=== PATIENT | female | born 1970 | race African-American/Black ===

== ENCOUNTER 2017-02-03 07:24 | Emergency (ER) | payer MEDICAID, OTHER ==
[~2017-02-03] VITALS: Ht 170.2 cm; Wt 70.0 kg
[2017-02-03 07:31] VITALS: BP 119/68; PULSE 72; RESP 20; TEMP 98.5; O2SAT 96
[2017-02-03] MEDS ORDERED: ZANT150T2 PO (07:37)
[2017-02-03] MEDS ORDERED: KETOROLAC TROMETHAMINE 60 MG/2 ML (IM) VIAL IM ONE (07:45)
[2017-02-03] MEDS ORDERED: ORPHENADRINE INJ 60 MG/2 ML AMP IM ONE (07:45)
[2017-02-03] MEDS ORDERED: CYCL1TAB29 PO (07:46)
[2017-02-03] MEDS ORDERED: IBUP800T23 PO (07:46)
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
== END 2017-02-03 08:05 | disposition home or self-care (01) ==
LOC: NEPK 07:24
DX: S46.811A Strain of other muscles, fascia and tendons at shoulder and upper arm level, right arm, initial encounter (principal); S39.012A Strain of muscle, fascia and tendon of lower back, initial encounter; K21.9 Gastro-esophageal reflux disease without esophagitis; F17.200 Nicotine dependence, unspecified, uncomplicated; V49.50XA Passenger injured in collision with unspecified motor vehicles in traffic accident, initial encounter
CPT/HCPCS: 96372; 99284; J1885; J2360

== ENCOUNTER 2017-07-31 06:00 | Emergency (ER) | payer MEDICAID, OTHER ==
[~2017-07-31] VITALS: Ht 165.1 cm; Wt 75.0 kg
[~2017-07-31 06:00] MED LIST: CYCL10TA PO; IBUP1TAB7 PO; ZANT150T2 PO
[2017-07-31 06:04] VITALS: BP 107/68; PULSE 89; RESP 16; TEMP 98.5; O2SAT 96
[2017-07-31] MEDS ORDERED: AMOX875T PO (06:24)
[2017-07-31] MEDS ORDERED: FLUT1SPR5 EACH NARE (06:24)
--- NOTE | 2017-07-31 06:28 | PD ---
HPI Chief Complaint: ENT Complaint Time Seen by Provider: 06:21 Travel History International Travel<30 days: No Contact w/Intl Traveler<30days: No Traveled to known affect area: No History of Present Illness HPI 41-year-old female presents for evaluation. For the past 2 days she has had nasal congestion, facial/sinus pressure. Symptoms are moderate, constant, no alleviating factors. Denies cough, sore throat, fevers or chills. No other complaints. PFSH Past Medical History Cardiac Catheterization: No Cardiovascular Problems: No High Cholesterol: No Congestive Heart Failure: No Diabetes: No Diminished Hearing: No GERD: Yes Heparin Induced Thrombocytopen: No Hypertension: No Immunizations Current: No Tetanus Vaccination: Unknown ?: Not LMP: menapause : 5 Para: 3 Tubal Ligation: Yes Past Surgical History Coronary Artery Bypass Graft: No Gynecologic Surgery: Yes (TUBAL LIGATION ) Family History Family Myocardial Infarction: Yes Social History Alcohol Use: Yes (OCC) Tobacco Use: Yes (/ PPD) Substance Use: No (DENIES) Allergies-Medications (Allergen,Severity, Reaction): Coded Allergies: No Known Allergies (Unverified Adverse Reaction, Unknown, 07/31/17) Reported Meds & Prescriptions Reported Meds & Active Scripts Active Flonase Nasal [place] (Fluticasone Nasal [place]) 50 Mcg/Act [place] 100 Mcg EACH NARE BID 10 Days Amoxicillin 875 Mg Tab 875 Mg PO BID 10 Days Review of Systems General / Constitutional: No: Fever, Chills HENT: Positive: Congestion, Other (positive for sinus pressure), No: Sore Throat Respiratory: No: Cough Physical Exam Narrative GENERAL: Well-nourished female in no acute distress SKIN: Warm and dry. HEAD: Atraumatic. Normocephalic. EYES: Pupils equal and round. No scleral icterus. No injection or drainage. ENT: No nasal bleeding or discharge. Mucous membranes pink and moist. Tender to palpation over the maxillary and frontal sinuses. NECK: Trachea midline. No JVD. CARDIOVASCULAR: Regular rate and rhythm. No murmur appreciated. RESPIRATORY: No accessory muscle use. Clear to auscultation. Breath sounds equal bilaterally. Data Data Last Documented VS Vital Signs Date Time Temp Pulse Resp B/P (MAP) Pulse Ox O2 Delivery O2 Flow Rate FiO2 07/31/17 06:04 98.5 89 16 107/68 (81 96 Room Air MDM Medical Decision Making Medical Screen Exam Complete: Yes Emergency Medical Condition: Yes Medical Record Reviewed: Yes Differential Diagnosis Sinusitis, rhinitis, orbital cellulitis, facial cellulitis Narrative Course Examination is consistent with sinusitis. The patient is being discharged with Flonase and amoxicillin. Diagnosis Primary Impression: Sinusitis Additional Instructions: Medication as prescribed. [id number] nasal decongestants. Follow-up with primary care physician as needed. Med/Other Pt SpecificInfo: Prescription(s) given Scripts Fluticasone Nasal [place] (Flonase Nasal [place]) 50 Mcg/Act [place] 100 MCG EACH NARE BID for Allergies for 10 Days, #1 BOTTLE 0 Refills Prov: Grisel Bates DO 07/31/17 Amoxicillin (Amoxicillin) 875 Mg Tab 875 MG PO BID for Infection for 10 Days, #20 TAB 0 Refills Prov: Grisel Bates DO 07/31/17 Disposition: 01 DISCHARGE HOME Condition: Stable Luis Corral Jul 31, 2017 06:28
== END 2017-07-31 06:39 | disposition home or self-care (01) ==
LOC: NEPD 06:00
DX: J32.9 Chronic sinusitis, unspecified (principal); F17.200 Nicotine dependence, unspecified, uncomplicated
CPT/HCPCS: 99284

== ENCOUNTER 2017-11-30 12:43 | Emergency (ER) | payer MEDICAID ==
[~2017-11-30 12:43] MED LIST changes: +AMOX875T PO; -CYCL10TA PO; +FLUT1SPR5 EACH NARE; -IBUP1TAB7 PO; -ZANT150T2 PO
[2017-11-30 12:54] VITALS: BP 123/81; PULSE 81; RESP 16; TEMP 98.1; O2SAT 99
[2017-11-30] MEDS ORDERED: AMOX875T PO (14:34)
[2017-11-30] MEDS ORDERED: TRAM50TA PO (14:34)
--- NOTE | 2017-11-30 14:49 | PD ---
HPI Chief Complaint: Oral / Dental Pain or Problem Time Seen by Provider: 14:21 Travel History International Travel<30 days: No Contact w/Intl Traveler<30days: No Traveled to known affect area: No History of Present Illness HPI 47-year-old female presents to the emergency room for evaluation of dental pain and swelling for the past day. Patient states pain started yesterday but swelling started upon waking. Localized to the left lower jaw area. No significant aggravating symptoms. No radiation. She has been applying clove oil with moderate relief in symptoms. She has not taken anything over-the- counter for her symptoms. She does not have a dentist. No drainage. No fever , chills, nausea, vomiting. PFSH Past Medical History Cardiac Catheterization: No Cardiovascular Problems: No High Cholesterol: No Congestive Heart Failure: No Diabetes: No Diminished Hearing: No GERD: Yes Heparin Induced Thrombocytopen: No Hypertension: No Immunizations Current: No Tetanus Vaccination: < 5 Years ?: Not : 5 Para: 3 Tubal Ligation: Yes Past Surgical History Coronary Artery Bypass Graft: No Gynecologic Surgery: Yes (TUBAL LIGATION ) Family History Family Myocardial Infarction: Yes Social History Alcohol Use: Yes (OCC) Tobacco Use: Yes (/ PPD) Substance Use: No (DENIES) Allergies-Medications (Allergen,Severity, Reaction): Coded Allergies: No Known Allergies (Unverified Adverse Reaction, Unknown, 07/31/17) Reported Meds & Prescriptions Reported Meds & Active Scripts Active Tramadol (Tramadol HCl) 50 Mg Tab 50 Mg PO Q8H PRN Amoxicillin 875 Mg Tab 875 Mg PO BID 7 Days Review of Systems Except as stated in HPI: all other systems reviewed are Neg Physical Exam Narrative GENERAL: Well-nourished, well-developed female no acute distress. Afebrile. Ambulatory. SKIN: Focused skin assessment warm/dry. HEAD: Normocephalic. EYES: No scleral icterus. No injection or drainage. NECK: Supple, trachea midline. No JVD or lymphadenopathy. DENTAL: Mild decay throughout. No loose or chipped teeth. No malocclusion. Tenderness to palpation of the left lateral incisor with surrounding edema. No obvious erythema or abscess to the gingiva. Patient does have some submental lymphadenopathy but no induration. CARDIOVASCULAR: Regular rate and rhythm without murmurs, gallops, or rubs. RESPIRATORY: Breath sounds equal bilaterally. No accessory muscle use. Data Data Last Documented VS Vital Signs Date Time Temp Pulse Resp B/P (MAP) Pulse Ox O2 Delivery O2 Flow Rate FiO2 11/30/17 12:54 98.1 81 16 123/81 (95) 99 MDM Medical Decision Making Medical Screen Exam Complete: Yes Emergency Medical Condition: Yes Medical Record Reviewed: Yes Differential Diagnosis Giovani's angina unlikely, dental abscess, dentalgia Narrative Course 47-year-old female presents to the emergency room for evaluation of dental pain that started yesterday and worsened today upon waking. Physical exam reveals mild decay throughout. No loose or chipped teeth. No malocclusion. Tenderness to palpation of the left lateral incisor with surrounding edema. No obvious erythema or abscess to the gingiva. Patient does have some submental lymphadenopathy but no induration. Consistent with dental abscess. Patient discharged with high-dose amoxicillin and tramadol. Told to follow-up with a dentist return for worsening symptoms. She understands and agrees to plan. Diagnosis Primary Impression: Dental abscess Referrals: Dentist Additional Instructions: Rest and drink plenty of fluids. Tramadol as directed, as needed for pain. Do not drink alcohol or drive with taking this medication. Amoxicillin as directed, until gone. Follow-up with a dentist. Return to the emergency room for worsening symptoms. Med/Other Pt SpecificInfo: Prescription(s) given Scripts Tramadol (Tramadol) 50 Mg Tab 50 MG PO Q8H Y for PAIN, #10 TAB 0 Refills Prov: Estefania Henning DO 11/30/17 Amoxicillin (Amoxicillin) 875 Mg Tab 875 MG PO BID for Infection for 7 Days, #14 TAB 0 Refills Prov: Estefania Henning DO 11/30/17 Disposition: 01 DISCHARGE HOME Condition: Stable Janice Panchal Nov 30, 2017 14:49
== END 2017-11-30 15:00 | disposition home or self-care (01) ==
LOC: NEPK 12:43
DX: K04.7 Periapical abscess without sinus (principal); Z72.0 Tobacco use
CPT/HCPCS: 99283